=== PATIENT | female | born 1995 | race Caucasian/White ===

== ENCOUNTER 2018-04-05 04:28 | Emergency (ER) | payer OTHER ==
[~2018-04-05] VITALS: Ht 167.6 cm; Wt 63.5 kg
[2018-04-05 04:59] LABS: ABSOLUTE NEUTROPHILS 3.2 thou/uL (1.4-8.2); BASOPHILS 0.7 % (0.0-2.0); EOSINOPHILS 2.3 % (0.0-3.0); HEMATOCRIT 48.2 % (37.0-47.0); HEMOGLOBIN 16.3 gm/dL (12.0-15.0); LYMPHOCYTES 42.4 % (24.0-44.0); MCH 32.9 pg (26.0-34.0); MCHC 33.9 g/dL (28.0-37.0); MONOCYTES 5.5 % (1.0-8.0); PLATELET COUNT 272 thou/uL (150-400); POLYS 49.1 % (36.0-66.0); RBC 4.96 mil/uL (4.20-5.00); RDW 12.1 % (10.5-14.5); WBC 6.6 thou/uL (4.0-11.0)
[2018-04-05 05:01] LABS: CALCIUM 9.4 mg/dL (8.5-10.1); CREATININE 0.6 mg/dL (0.6-1.0); POTASSIUM 3.6 mmol/L (3.5-5.1)
[2018-04-05 05:06] LABS: ALBUMIN 4.1 g/dL (3.4-5.0); TOTAL BILIRUBIN 0.3 mg/dL (<0.1-1.0)
[2018-04-05 05:43] LABS: AMP/METHAMP Negative (Negative); BARBITURATES Negative (Negative); BENZODIAZEPINES Negative (Negative); COCAINE Negative (Negative); METHADONE Negative (Negative); OPIATES Negative (Negative); PCP Negative (Negative)
[2018-04-05 09:12] VITALS: BP 130/80
== END 2018-04-05 09:13 | disposition home or self-care (01) ==
LOC: ER 04:28
PROVIDERS: Student in an Organized Health Care Education/Training Program
DX: F10.129 Alcohol abuse with intoxication, unspecified (principal); T68.XXXA Hypothermia, initial encounter